=== PATIENT | female | born 1980 | race Caucasian/White ===

== ENCOUNTER 2019-03-09 14:55 | Inpatient (IN) | payer OTHER ==
[~2019-03-09] VITALS: Ht 165.1 cm; Wt 3.2 kg
[~2019-03-09 14:55] MED LIST: CATAFLAM50 MG PO; IBUPROFEN800 MG PO; MEDROL4 MG PO; ORPH100T PO
== END 2019-03-31 11:13 | disposition home or self-care (01) | DRG 788 ==
LOC: LDR 03-27 23:50 → OB/GYN 03-27 23:50 → LDR 03-28 03:26 → OB/GYN 03-29 09:45 → EDBD 03-31 11:13 → OB/GYN 03-31 11:13 → EDBD 04-01 14:00
PROVIDERS: ADMIT Specialist
PROC: 3E033VJ Introduction of Other Hormone into Peripheral Vein, Percutaneous Approach (ICD-10-PCS; 2019-03-27)
PROC: 4A1HXCZ Monitoring of Products of Conception, Cardiac Rate, External Approach (ICD-10-PCS; 2019-03-27)
PROC: 10D00Z1 Extraction of Products of Conception, Low, Open Approach (ICD-10-PCS; principal; 2019-03-28 09:00)
DX: O82 Encounter for cesarean delivery without indication (principal); O61.0 Failed medical induction of labor; O14.14 Severe pre-eclampsia complicating childbirth; Z3A.39 39 weeks gestation of pregnancy; Z37.0 Single live birth

== ENCOUNTER → 2019-03-27 | Outpatient (CLI) | payer OTHER | END | disposition home or self-care (01) | LOC: OBS/DEL 16:25 | DX: O13.3 Gestational [pregnancy-induced] hypertension without significant proteinuria, third trimester (principal); O14.23 HELLP syndrome (HELLP), third trimester; O14.03 Mild to moderate pre-eclampsia, third trimester; O99.413 Diseases of the circulatory system complicating pregnancy, third trimester; O09.513 Supervision of elderly primigravida, third trimester; I34.1 Nonrheumatic mitral (valve) prolapse; O47.1 False labor at or after 37 completed weeks of gestation ==

== ENCOUNTER 2025-04-12 07:16 | Outpatient (CLI) | payer OTHER | END 2025-04-12 07:17 | disposition home or self-care (01) | LOC: NUCLEAR 07:16 | PROVIDERS: ATTEND Internal Medicine | DX: C77.3 Secondary and unspecified malignant neoplasm of axilla and upper limb lymph nodes (principal); C50.812 Malignant neoplasm of overlapping sites of left female breast; C50.612 Malignant neoplasm of axillary tail of left female breast ==